=== PATIENT | male | born 1945 | race Caucasian/White ===

== ENCOUNTER 2018-01-20 14:05 | Emergency (ER) | payer OTHER, BC ==
[~2018-01-20] VITALS: Ht 182.9 cm; Wt 122.5 kg
[2018-01-20 15:02] LABS: MCH 29.1 PG (29.0-34.0); MCHC 33.3 G/DL (30.0-36.0); MCV 87.3 FL (86-99); PLATELET COUNT 125 K/uL (156-360); RBC DIS.WIDTH-CV 14.9 % (11.8-14.6); RBC DIS.WIDTH-SD 47.5 % (39-53); RED BLOOD COUNT 4.81 M/uL (4.00-5.50); WHITE BLOOD COUNT 7.8 K/uL (4.1-10.2)
[2018-01-20 15:10] LABS: CHLORIDE 101 mEq/L (99-109); POTASSIUM 4.4 mEq/L (3.7-5.4); SODIUM 136 mEq/L (136-147)
[2018-01-20 15:12] LABS: GLUCOSE 145 mg/dL (70-99)
[2018-01-20 15:16] LABS: CREATININE 1.2 mg/dL (0.6-1.3); GFR ESTIMATE (CALCULATED) > 59 mL/min/ (58.99-99999)
[2018-01-20 15:17] LABS: UREA NITROGEN (BUN) 16 mg/dL (9-23)
[2018-01-20] MEDS ORDERED: DOXYCYCLINE HY100 MG PO (16:41)
[2018-01-20] MEDS ORDERED: PROAIR HFA8.5 GM IH (16:41)
[2018-01-20 17:05] VITALS: BP 127/78
== END 2018-01-20 17:36 | disposition home or self-care (01) ==
LOC: EME 14:05
PROVIDERS: Physician Assistant
DX: R06.00 Dyspnea, unspecified (principal); J18.9 Pneumonia, unspecified organism; M79.661 Pain in right lower leg; Z87.891 Personal history of nicotine dependence
CPT/HCPCS: 71046; 80048; 85027; 93971; 99281; 99285